=== PATIENT | male | born 1995 | race Caucasian/White ===

== ENCOUNTER 2023-10-05 19:32 | Emergency (ER) | payer MEDICAID, OTHER ==
[~2023-10-05] VITALS: Ht 177.8 cm; Wt 80.0 kg
[2023-10-05 19:34] VITALS: O2SAT 100
[2023-10-05] MEDS: SODIUM CHLORIDE 0.9% 1,000 ML IV ONE (20:07)
[2023-10-05 20:58] LABS: BASOPHILS % 0.7 % (0.0-2.0); HEMATOCRIT. 31.4 % (42.0-52.0); HEMOGLOBIN. 9.9 g/dL (14.0-18.0); LYMPHOCYTES % 18.2 % (20.0-50.0); MEAN CORPUSCULAR HEMOGLOBIN 30.2 pg (28.0-32.0); MEAN CORPUSCULAR HGB CONC 31.7 g/dL (31.0-37.0); MEAN CORPUSCULAR VOLUME 95.5 fL (80.0-94.0); MEAN PLATELET VOLUME 7.9 fl (7.4-10.4); MONOCYTES % 11.1 % (2.0-8.0); PLATELET 113 x1000/uL (130-400); RED BLOOD CELL COUNT 3.29 mill/uL (4.7-6.1); RED CELL DISTRIBUTION WIDTH 14.1 % (11.6-14.6); WHITE BLOOD COUNT 3.4 x1000/uL (4.5-11.0)
[2023-10-05 21:00] LABS: CLARITY URINE CLEAR (CLEAR); COLOR URINE YELLOW (YELLOW); GLUCOSE URINE NEGATIVE (NEGATIVE); KETONES URINE TRACE (NEGATIVE); LEUKOCYTE ESTERASE URINE NEGATIVE (NEGATIVE); NITRITE URINE NEGATIVE (NEGATIVE); OCCULT BLOOD URINE 3+ (NEGATIVE); PH URINE 6.5 (4.5-8.0); PROTEIN URINE TRACE (NEGATIVE); SPECIFIC GRAVITY URINE 1.021 (1.005-1.030)
[2023-10-05 21:07] LABS: CHLORIDE 113 mEq/L (98-107); POTASSIUM 3.3 mEq/L (3.5-5.1); SODIUM 143 mEq/L (136-145)
[2023-10-05 21:08] LABS: CARBON DIOXIDE 23 mEq/L (21-32)
[2023-10-05 21:09] LABS: CALCIUM 7.5 mg/dL (8.7-10.4)
[2023-10-05 21:13] LABS: CREATININE 0.7 mg/dL (0.6-1.3); GLUCOSE 85 mg/dL (70-105)
[2023-10-05 21:14] LABS: *AMPHETAMINES SCREEN URINE NEGATIVE (NEGATIVE); *BARBITURATES SCREEN URINE NEGATIVE (NEGATIVE); *BENZODIAZEPINES SCREEN URINE NEGATIVE (NEGATIVE); *COCAINE SCREEN URINE NEGATIVE (NEGATIVE)
[2023-10-05 21:15] LABS: ACETAMINOPHEN 2 ug/mL (10-30); CANNABINOID URINE SCREEN NEGATIVE (NEGATIVE); CREATINE KINASE 128 IU/L (46-171); ECSTASY MDMA SCREEN URINE NEGATIVE (NEGATIVE); METHADONE URINE SCREEN NEGATIVE (NEGATIVE); OPIATES URINE SCREEN NEGATIVE (NEGATIVE); PHENCYCLIDINE URINE SCREEN NEGATIVE (NEGATIVE)
[2023-10-05 21:16] LABS: ETHANOL BLOOD < 10 mg/dL (<10); UREA NITROGEN BLOOD < 5 mg/dL (9-23)
[2023-10-05 21:18] LABS: THYROID STIMULATING HORMONE 0.42 uIU/mL (0.55-4.78)
[2023-10-05 21:46] LABS: RBC URINE TNTC /hpf (0-2); WBC URINE NONE SEEN /hpf (0-2)
[2023-10-05 21:47] LABS: SQUAMOUS EPITHELIAL CELL URINE 1+ /lpf (RARE/1+)
[2023-10-05 21:49] LABS: BACTERIA URINE TRACE
[2023-10-06 00:46] LABS: CHLORIDE 109 mEq/L (98-107); POTASSIUM 3.6 mEq/L (3.5-5.1); SODIUM 142 mEq/L (136-145)
[2023-10-06 00:47] LABS: CALCIUM 8.7 mg/dL (8.7-10.4); CARBON DIOXIDE 29 mEq/L (21-32)
[2023-10-06 00:52] LABS: CREATININE 0.8 mg/dL (0.6-1.3); GLUCOSE 93 mg/dL (70-105)
[2023-10-06 00:54] LABS: ACETAMINOPHEN 2 ug/mL (10-30); ALANINE AMINOTRANSFERASE 19 IU/L (10-49); ALBUMIN 3.7 g/dL (3.2-4.8); ASPARTATE AMINOTRANSFERASE 19 IU/L (<34); PROTEIN TOTAL 6.2 g/dL (6.0-8.3)
[2023-10-06 00:55] LABS: UREA NITROGEN BLOOD < 5 mg/dL (9-23)
[2023-10-06 10:00] LABS: ACETAMINOPHEN < 2 ug/mL (10-30); ALANINE AMINOTRANSFERASE 19 IU/L (10-49); ALBUMIN 3.7 g/dL (3.2-4.8); ASPARTATE AMINOTRANSFERASE 22 IU/L (<34); BILIRUBIN DIRECT 0.4 mg/dL (<=3.0); BILIRUBIN TOTAL 1.4 mg/dL (0.1-1.0)
[2023-10-08 13:00] VITALS: BP 112/82; PULSE 78; RESP 18; TEMP 98.4
[2023-10-08] MEDS ORDERED: MIRTAZAPINE 15MG TABLET PO SCH (21:00)
== END 2023-10-08 13:10 | disposition home or self-care (01) ==
LOC: ER 19:32
DX: T48.1X2A Poisoning by skeletal muscle relaxants [neuromuscular blocking agents], intentional self-harm, initial encounter (principal); F41.9 Anxiety disorder, unspecified; F32.9 Major depressive disorder, single episode, unspecified; R41.82 Altered mental status, unspecified; Z20.822 Contact with and (suspected) exposure to COVID-19; X58.XXXA Exposure to other specified factors, initial encounter
CPT/HCPCS: 80076; 80053; 80305; 80048; 81003; 80307; 80329; 80320; 82550; 84443; 85025; 36415; 71045; 70450; 96360; 99285; 87426; J7030; Z7610 ×2; G0480